=== PATIENT | male | born 1955 | race Caucasian/White ===

== ENCOUNTER 2020-04-22 11:59 | Outpatient (CLI) | payer OTHER, SELFPAY ==
--- NOTE | ~2020-04-22 | XR_ITS ---
XR foot LT min 3V DATE: 04/22/2020 12:21 INDICATION: Medial left foot pain for months . No injury. TECHNIQUE: 4 views COMPARISON: None FINDINGS: There is posterior and plantar calcaneal enthesopathy. There is osteoarthritis at the tibiotalar joint. There is mild osteoarthritis at the third metatarsophalangeal joint. No fracture or dislocation, periosteal reaction or bone destruction is evident. IMPRESSION: Osteoarthritis Calcaneal enthesopathy Reviewed, dictated and finalized at location A.
== END 2020-04-22 12:00 | disposition home or self-care (01) ==
PROVIDERS: PCP Family Medicine; Visit Provider Family Medicine
DX: M19.072 Primary osteoarthritis, left ankle and foot (principal)
CPT/HCPCS: 73630

== ENCOUNTER → 2020-08-18 13:26 | Outpatient (CLI) | payer OTHER, SELFPAY ==
--- NOTE | ~2020-08-18 | XR_ITS ---
XR hip BI 2V w AP pelvis 08/18/2020 14:17 Indication: Bilateral hip pain Procedure: 3 views of each hip including AP pelvis Comparison: No prior studies for comparison. Findings: There is mild bilateral symmetric osteoarthritis of the hips. There is lower lumbar spondyl osis. Pelvic rings are intact. Sacral foramen are symmetric. No fracture or traumatic malalignment. Impression: 1: Mild osteoarthritis of the hips. Reviewed, dictated and finalized at location B. Impression: 1: Mild osteoarthritis of the hips.
== END ==
PROVIDERS: PCP Family Medicine; Visit Provider Nurse Practitioner Family
DX: M16.0 Bilateral primary osteoarthritis of hip (principal)
CPT/HCPCS: 73521

== ENCOUNTER → 2022-06-02 08:35 | Outpatient (CLI) | payer MEDICARE, OTHER, SELFPAY ==
--- NOTE | ~2022-06-02 | US_ITS ---
EXAMINATION: US abdomen complete DATE: 06/02/2022 09:01 INDICATION: Jaundice. Elevated bilirubin. TECHNIQUE: Multiple grayscale and Doppler ultrasound images of the abdomen were obtained. COMPARISON: None available FINDINGS: Incompletely visualized, visualized portions of normal. The liver is enlarged, with increas ed echogenicity and normal echotexture. No surface nodularity. Normal hepatopetal flow in the main po rtal vein. The gallbladder is normal with no abnormal wall thickening, pericholecystic fluid or stone s. The normal common bile duct measures 5 mm. There was no sonographic Mello sign. The visualized po rtions of the aorta and inferior vena cava are normal. The right kidney measures 13.3 x 5.7 x 6.4. The left kidney measures 10.7 x 6.2 x 5.5. The kidneys de monstrate normal parenchymal echogenicity. There is no hydronephrosis. The spleen is normal in appear ance and measures 12.3 cm. IMPRESSION: 1. Hepatomegaly and steatosis. Reviewed, dictated and finalized at location K.
== END ==
PROVIDERS: PCP Family Medicine; Visit Provider Nurse Practitioner Family
DX: R17 Unspecified jaundice (principal); R16.0 Hepatomegaly, not elsewhere classified; K76.0 Fatty (change of) liver, not elsewhere classified
CPT/HCPCS: 76700

== ENCOUNTER 2022-06-04 09:37 | Outpatient (CLI) | payer MEDICARE, OTHER, SELFPAY ==
--- NOTE | ~2022-06-04 | US_ITS ---
EXAMINATION: US aorta [facility] DATE: 06/04/2022 11:05 INDICATION: AAA screening, history of hypertension diabetes obesity and smoking. TECHNIQUE: Grayscale, color Doppler, and pulsed Doppler images of the aorta and common iliac arteries were obtained. COMPARISON: None. FINDINGS: The aorta contains calcified plaque, mild fusiform aortic dilation, maximum AP dimension is 3.3 cm, m aximum transverse dimension 4.0 cm. The right common iliac artery 1.5 x 1.8 cm. The left common iliac artery 1.8 x 1.9 cm. IMPRESSION: 1. Maximum transverse diameter of the proximal aorta is 4 cm, recommend follow-up abdominal aortic ul trasound in one year. Reviewed, dictated and finalized at location K. IMPRESSION: 1. Maximum transverse diameter of the proximal aorta is 4 cm, recommend follow- up abdominal aortic ultrasound in one year.
--- NOTE | ~2022-06-04 | US_ITS ---
EXAMINATION: US carotid duplex BI DATE: 06/04/2022 11:06 INDICATION: Left carotid bruit TECHNIQUE: Grayscale, color Doppler, and pulsed Doppler images of the cervical carotid arteries were obtained. The degree of vessel stenosis is placed in one of the following categories: normal, <50%, 5 0-69%, >=70% but less than near-occlusion, near-occlusion, or total occlusion. Note that percent sten osis relative to normal distal artery lumen diameter is indirectly measured from velocity measurement s as described by Lauro, et al. Radiology 2003; [id number]. Notes: Normal: Peak systolic velocity <125 centimeters/sec and no plaque <50%. Peak systolic velocity <125 ( EDV <40; ICA/CCA PSV ratio <2.0; used these factors only a tandem lesions or low cardiac output or co ntralateral disease) 50-69 %: PSV 125-230 (EDV 40-100; ratio 2-4) >= 70% but less than near occlusion: PSV greater than 230 (EDV > 100; ratio> 4.0) Near Occlusion: PSV that is variable; markedly narrowed lumen Occlusion: Absent flow on color/spectral Doppler and no lumen on carbone scale. COMPARISON: None. FINDINGS: RIGHT: The right common carotid artery (CCA) peak systolic velocity (PSV) is 69 cm/s. The right internal car otid artery (ICA) PSV is 66 cm/s. The right ICA end-diastolic velocity (EDV) is 20 cm/s. The right IC A/CCA PSV ratio is 1.0. The external carotid artery (ECA) PSV is 68 cm/s. There is antegrade flow in the right vertebral artery. LEFT: The left CCA PSV is 65 cm/s. The left ICA PSV is 71 cm/s. The left ICA EDV is 29 cm/s. The left ICA/C CA PSV ratio is 1.1. The ECA PSV is 78 cm/s. There is antegrade flow in the left vertebral artery. IMPRESSION: 1. Less than 50% stenosis in the right internal carotid artery by sonographic criteria. 2. Less than 50% stenosis in the left internal carotid artery by sonographic criteria. Reviewed, dictated and finalized at location A. IMPRESSION: 1. Less than 50% stenosis in the right internal carotid artery by sonographic wesley jara. 2. Less than 50% stenosis in the left internal carotid artery by sonographic claire samuels.
== END 2022-06-04 09:38 | disposition home or self-care (01) ==
LOC: ANHIMG 09:43
PROVIDERS: PCP Family Medicine; Visit Provider Internal Medicine Cardiovascular Disease
DX: R09.89 Other specified symptoms and signs involving the circulatory and respiratory systems (principal); Z87.891 Personal history of nicotine dependence; I65.23 Occlusion and stenosis of bilateral carotid arteries
CPT/HCPCS: 76706; 93880

== ENCOUNTER 2022-06-27 00:56 | Day surgery (SDC) | payer MEDICARE, OTHER, SELFPAY ==
[2022-06-18 15:49] VITALS: BMI 37.9
--- NOTE | 2022-06-26 14:48 | PM.HPGS ---
History of Present Illness History of Present Illness Consent: Risks, benefits, and alternatives have been discussed and questions answered. Patient agrees to proceed with procedure. Chief complaint: neoplasm screening Narrative: Chad Bee is a 67 year old male who was referred for colon cancer screening. Review of Systems Review of Systems: All systems reviewed & are unremarkable except as noted in HPI and below Gastrointestinal: Comments: Fatty liver diagnosed 5 years ago. [facility] Past Medical History Medical History Adult BMI 39.0-39.9 kg/sq m Anxiety disorder, unspecified Atherosclerotic heart disease of [place] coronary artery without angina pectoris Elevated bilirubin Essential (primary) hypertension Hepatic steatosis Hepatomegaly Mixed hyperlipidemia Morbid obesity Obstructive sleep apnea on CPAP Osteoarthritis of both knees Rheumatoid arthritis, unspecified Family History Family History Father Hypertension Family history of diabetes mellitus in first degree relative Family history of heart disease in male family member before age 55 Sibling Family history of diabetes mellitus in first degree relative Other Family history of cardiovascular disease Family history of lung cancer Social History Social History Smoking packs per day: 0.5 Smoking cigarettes per day: 10.0 Years smoked: 10 Smoking pack-years: 5.00 Smoking status: Former smoker Tobacco type: cigarettes Second hand tobacco smoke exposure: No Alcohol intake: current Substance use: never Substance use type: does not use Living arrangements: with family Spiritual care concerns: No Meds Home Medications and Allergies Home Medications Medication Instructions Recorded Confirmed Type amlodipine 5 mg tablet 5 mg PO DAILY 03/28/20 06/19/22 History aspirin 81 mg tablet,delayed 81 mg PO DAILY 03/28/20 06/19/22 History release (Adult Low Dose Aspirin) clopidogrel 75 mg tablet (Plavix) 75 mg PO DAILY 03/28/20 06/19/22 History hydrochlorothiazide 12.5 mg capsule 12.5 mg PO DAILY 03/28/20 06/19/22 History metoprolol succinate 100 mg 100 mg PO DAILY 03/28/20 06/19/22 History tablet,extended release 24 hr rosuvastatin 10 mg tablet (Crestor) 10 mg PO DAILY 03/28/20 06/19/22 History sertraline 100 mg tablet See Rx Instructions .Route 10/09/20 06/19/22 Rx .COMPLEX #180 tabs infliximab-axxq 100 mg intravenous 100 mg IV Q2M 01/30/22 06/19/22 History solution (Avsola) losartan 50 mg tablet 50 mg PO DAILY 06/18/22 06/19/22 History rosuvastatin 20 mg tablet 20 mg PO DAILY 06/18/22 06/19/22 History Allergies Allergy/AdvReac Type Severity Reaction Status Date / Time No Known Allergies Allergy Unknown Verified 06/27/22 09:04 Exam Const: Nutritional Appearance: obese Resp: Auscultation: clear to auscultation bilaterally Cardio: Rate: regular rate Rhythm: regular rhythm GI: GI Palp: Yes Soft to palpation and No Tenderness to palpation present (GI) Assessment and Plan Assessment and plan (1) Screening for colon cancer: Code(s): Z12.11 - Encounter for screening for malignant neoplasm of colon Status: Acute Assessment and Plan: Colonoscopy with possible biopsy or polypectomy or cautery or injection of substances.
--- NOTE | 2022-06-27 08:01 | WPDANESEPPF ---
Anes - Initial Pre Proc Eval Procedure: Operation Date: 06/27/22 10:15 Proposed Procedures p Screening Colonoscopy - Ace López MD Date/Time: 06/27/22 08:01 Surgeon: Ace López MD Pre Op Diagnosis: neoplasm screening Patient Data Age: 67 Gender: M Height: 1.78 m Weight: 120 kg Allergies Allergy/AdvReac Type Severity Reaction Status Date / Time No Known Allergies Allergy Unknown Verified 06/27/22 09:04 Home Medications Medication Instructions Recorded Confirmed Type amlodipine 5 mg tablet 5 mg PO DAILY 03/28/20 06/19/22 History aspirin 81 mg tablet,delayed 81 mg PO DAILY 03/28/20 06/19/22 History release (Adult Low Dose Aspirin) clopidogrel 75 mg tablet (Plavix) 75 mg PO DAILY 03/28/20 06/19/22 History hydrochlorothiazide 12.5 mg capsule 12.5 mg PO DAILY 03/28/20 06/19/22 History metoprolol succinate 100 mg 100 mg PO DAILY 03/28/20 06/19/22 History tablet,extended release 24 hr rosuvastatin 10 mg tablet (Crestor) 10 mg PO DAILY 03/28/20 06/19/22 History sertraline 100 mg tablet See Rx Instructions .Route 10/09/20 06/19/22 Rx .COMPLEX #180 tabs infliximab-axxq 100 mg intravenous 100 mg IV Q2M 01/30/22 06/19/22 History solution (Avsola) losartan 50 mg tablet 50 mg PO DAILY 06/18/22 06/19/22 History rosuvastatin 20 mg tablet 20 mg PO DAILY 06/18/22 06/19/22 History Patient hx anesthesia problems: none Family hx anesthesia problems: none Results Review: All pre-operative results and documents have been reviewed as part of the pre-operative evaluation. [facility] Past Medical History Medical History (Updated 06/27/22 @ 08:03 by Michael Washington MD) Adult BMI 39.0-39.9 kg/sq m Anxiety disorder, unspecified Atherosclerotic heart disease of [place] coronary artery without angina pectoris Elevated bilirubin Essential (primary) hypertension Hepatic steatosis Hepatomegaly Mixed hyperlipidemia Morbid obesity Obstructive sleep apnea on CPAP Osteoarthritis of both knees Rheumatoid arthritis, unspecified Family History Family History Father Hypertension Family history of diabetes mellitus in first degree relative Family history of heart disease in male family member before age 55 Sibling Family history of diabetes mellitus in first degree relative Other Family history of cardiovascular disease Family history of lung cancer Social History Social History Smoking packs per day: 0.5 Smoking cigarettes per day: 10.0 Years smoked: 10 Smoking pack-years: 5.00 Smoking status: Former smoker Tobacco type: cigarettes Second hand tobacco smoke exposure: No Alcohol intake: current Substance use: never Substance use type: does not use Living arrangements: with family Spiritual care concerns: No Anes - Eval Final PreProcedure Day of Procedure 06/27/22 08:01 Patient weight: morbidly obese Heart: regular rate and rhythm Lungs: clear to auscultation and normal air movement Airway: Mallampati scale class II Neurological: alert and oriented Last oral intake: >/= 8 hours ASA classification: III Emergent: no Anesthetic plan: proceed Anesthesia type and monitoring: general GIVS Results Review: All pre-operative results and documents have been reviewed as part of the pre-operative evaluation. Informed Consent: The patient's anesthetic plan and its attendant risks and benefits were discussed with the patient/family/POA. Questions were solicited and answers provided to the satisfaction of the patient/family/POA.
[2022-06-27 09:06] VITALS: BP 127/57; PULSE 57; RESP 19; TEMP 36.2; O2SAT 98
[2022-06-27] MEDS: LACTATED RINGERS 1,000 ML 150 ML IV CONT (09:15)
[2022-06-27 10:28] VITALS: BP 100/58; PULSE 54; RESP 19; O2SAT 98
[2022-06-27 10:38] VITALS: BP 106/65; PULSE 50; RESP 19; O2SAT 98
[2022-06-27 10:48] VITALS: BP 110/60; PULSE 56; RESP 20; O2SAT 100
== END 2022-06-27 11:01 | disposition home or self-care (01) ==
PROVIDERS: PCP Family Medicine; Visit Provider Internal Medicine Gastroenterology
PROC: 0DJD8ZZ Inspection of Lower Intestinal Tract, Via Natural or Artificial Opening Endoscopic (ICD-10-PCS; CPT 45378; principal; 2022-06-27 10:15)
DX: Z12.11 Encounter for screening for malignant neoplasm of colon (principal); D12.5 Benign neoplasm of sigmoid colon; K57.30 Diverticulosis of large intestine without perforation or abscess without bleeding; K57.32 Diverticulitis of large intestine without perforation or abscess without bleeding; K64.8 Other hemorrhoids; Z79.82 Long term (current) use of aspirin; F41.9 Anxiety disorder, unspecified; I25.10 Atherosclerotic heart disease of native coronary artery without angina pectoris; I10 Essential (primary) hypertension; K76.0 Fatty (change of) liver, not elsewhere classified; E78.5 Hyperlipidemia, unspecified; E78.2 Mixed hyperlipidemia; Z87.891 Personal history of nicotine dependence; E66.9 Obesity, unspecified; Z68.41 Body mass index [BMI] 40.0-44.9, adult
CPT/HCPCS: 45380; 88305; J2704; J7120

== ENCOUNTER 2022-09-01 15:04 | Emergency (ER) | payer MEDICARE, OTHER, SELFPAY ==
[2022-09-01 15:16] VITALS: BP 125/75; PULSE 66; RESP 20; TEMP 36.2; O2SAT 100
--- NOTE | 2022-09-01 16:13 | ED.SKABFB ---
HPI - Skin/Abscess/Foreign Bdy General Chief complaint: Skin/Abscess/Foreign Body Stated complaint: Rt Back and Chest Pain,Rash Time Seen by Provider: 09/01/22 15:57 Source: patient Mode of arrival: ambulatory Limitations: no limitations History of Present Illness HPI narrative: Patient presents today complaining of painful rash to his mid back extending laterally to his chest. Pain began 6 days ago, but the rash started today. He currently rates his pain 5/10 and has tried no [id number] treatment prior to arrival. Patient has rheumatoid arthritis for which he takes Remicade. Related Data Home Medications Medication Instructions Recorded Confirmed amlodipine 5 mg tablet 5 mg PO DAILY 03/28/20 09/01/22 aspirin 81 mg tablet,delayed 81 mg PO DAILY 03/28/20 09/01/22 release (Adult Low Dose Aspirin) clopidogrel 75 mg tablet (Plavix) 75 mg PO DAILY 03/28/20 09/01/22 hydrochlorothiazide 12.5 mg capsule 12.5 mg PO DAILY 03/28/20 09/01/22 metoprolol succinate 100 mg 100 mg PO DAILY 03/28/20 09/01/22 tablet,extended release 24 hr infliximab-axxq 100 mg intravenous 100 mg IV Q2M 01/30/22 09/01/22 solution (Avsola) losartan 50 mg tablet 50 mg PO DAILY 06/18/22 09/01/22 rosuvastatin 20 mg tablet 20 mg PO DAILY 06/18/22 09/01/22 Allergies Allergy/AdvReac Type Severity Reaction Status Date / Time No Known Allergies Allergy Unknown Verified 09/01/22 15:56 Review of Systems Review of Systems: CONSTITUTIONAL: Denies body aches, fever, chills, or sweats. EYES: Denies visual changes, redness, or discharge. ENT: Denies rhinorrhea, congestion, sore throat, or otalgia. CARDIOVASCULAR: Denies chest pain, palpitations, or edema. RESPIRATORY: Denies cough or dyspnea. GASTROINTESTINAL: Denies abdominal pain, nausea, vomiting, or diarrhea. GENITOURINARY: Denies dysuria or hematuria. SKIN: + rash MUSCULOSKELETAL: Denies back pain, joint pain, or myalgia. NEUROLOGIC: Denies headache, numbness, tingling, or weakness. PSYCH: Denies depression or anxiety. [facility] Past Medical History Medical History Adult BMI 39.0-39.9 kg/sq m Anxiety disorder, unspecified Atherosclerotic heart disease of [place] coronary artery without angina pectoris Elevated bilirubin Essential (primary) hypertension Hepatic steatosis Hepatomegaly Mixed hyperlipidemia Morbid obesity Obstructive sleep apnea on CPAP Osteoarthritis of both knees Rheumatoid arthritis, unspecified Family History Family History Father Hypertension Family history of diabetes mellitus in first degree relative Family history of heart disease in male family member before age 55 Sibling Family history of diabetes mellitus in first degree relative Other Family history of cardiovascular disease Family history of lung cancer Social History Social History Smoking packs per day: 0.5 Smoking cigarettes per day: 10.0 Years smoked: 10 Smoking pack-years: 5.00 Smoking status: Former smoker Tobacco type: cigarettes Second hand tobacco smoke exposure: No Alcohol intake: current Substance use: never Substance use type: does not use Spiritual care concerns: No Comments At time of signature, I have reviewed and agree with nursing past medical, surgical, social and family history unless otherwise noted. Please see nursing chart for further information. There is no relevant family history pertinent to the presenting complaint Exam Narrative: GENERAL: Well-appearing, well-nourished, and in no acute distress. HEAD: Normocephalic, atraumatic. EYES: EOMI. No redness or drainage. Conjunctivae normal. ENT: Mucous membranes pink and moist. NECK: Normal AROM. CHEST: No respiratory distress. EXTREMITIES: Normal range of motion. No edema. SKIN: Warm, dry. Capillary refill normal
== END 2022-09-01 16:23 | disposition home or self-care (01) ==
PROVIDERS: Emergency Provider Nurse Practitioner; PCP Family Medicine
DX: B02.9 Zoster without complications (principal); Z87.891 Personal history of nicotine dependence; I10 Essential (primary) hypertension; E78.2 Mixed hyperlipidemia; G47.33 Obstructive sleep apnea (adult) (pediatric); M17.0 Bilateral primary osteoarthritis of knee; M06.9 Rheumatoid arthritis, unspecified; I25.10 Atherosclerotic heart disease of native coronary artery without angina pectoris; Z79.82 Long term (current) use of aspirin
CPT/HCPCS: 99213; G0463

== ENCOUNTER 2023-01-22 11:56 | Outpatient (CLI) | payer MEDICARE, OTHER, SELFPAY ==
--- NOTE | ~2023-01-22 | XR_ITS ---
XR chest 2V DATE: 01/22/2023 12:09 INDICATION: Dyspnea TECHNIQUE: PA and lateral views COMPARISON: 10/13/2015 CT pulmonary scan 10/11/2015 2 view chest FINDINGS: Normal heart size. Aortic calcification and minimal tortuosity. No hilar or mediastinal enl argement. No pulmonary infiltrate or consolidation, pleural effusion or pulmonary vascular congestion or pneumo thorax. Diffuse idiopathic skeletal hyperostosis of the thoracic spine. IMPRESSION: No active cardiac pulmonary disease Aortic atherosclerosis Diffuse idiopathic skeletal hyperostosis of the thoracic spine Reviewed, dictated and finalized at location L.
== END 2023-01-22 11:57 | disposition home or self-care (01) ==
PROVIDERS: PCP Family Medicine; Visit Provider Family Medicine
DX: R06.09 Other forms of dyspnea (principal); I70.0 Atherosclerosis of aorta; M48.14 Ankylosing hyperostosis [Forestier], thoracic region
CPT/HCPCS: 71046

== ENCOUNTER 2023-01-31 14:54 | Outpatient (CLI) | payer MEDICARE, OTHER, SELFPAY ==
--- NOTE | ~2023-01-31 | CT_ITS ---
EXAMINATION:CT lung screening DATE: 01/31/2023 15:11 INDICATION: Personal history of nicotine dependence. TECHNIQUE: Computed tomography (CT) of the chest was performed without intravenous contrast. Automate d exposure control and iterative reconstruction technique were employed. The dose-length product (DLP ) was 459.02 mGy-cm. COMPARISON: Chest CT 12/12/2014 FINDINGS: There is mild scarring in paraspinal right lower lobe. There is a 3 mm nodule in left lower lobe. No pleural effusion. The heart size is normal. There are coronary artery calcifications. No pe ricardial effusion. There are bridging endplate osteophytes at multiple levels in the spine, consiste nt with diffuse idiopathic skeletal hyperostosis (DISH). There is severe cervical spondylosis. There is mild chronic anterior wedging of multiple lower thoracic vertebral bodies. IMPRESSION: 1. Lung-RADS category 2: Benign appearance or behavior. Reviewed, dictated and finalized at location A.
== END 2023-01-31 14:55 | disposition home or self-care (01) ==
PROVIDERS: PCP Family Medicine; Visit Provider Family Medicine
DX: Z12.2 Encounter for screening for malignant neoplasm of respiratory organs (principal); Z87.891 Personal history of nicotine dependence; R06.02 Shortness of breath
CPT/HCPCS: 71271

== ENCOUNTER 2024-07-27 09:27 | Outpatient (CLI) | payer MEDICARE, OTHER, SELFPAY ==
--- NOTE | ~2024-07-27 | CT_ITS ---
CT Scan of the Chest without Contrast: Clinical Indication: Pulmonary nodule Technique: Contiguous sections were acquired throughout the chest without intravenous contrast. Dose reduction technique was used on this scan by utilizing automated exposure control and iterative recon struction technique. The dose-length product (DLP) was 573.13 mGy-cm. COMPARISON: 01/31/2023 Findings: There is no evidence of any significant mediastinal, hilar or axillary lymphadenopathy. Severe hanson ry artery calcification present. There is no evidence of pleural or pericardial effusion. Stable 2 mm left lower lobe pulmonary nodule. Images through the upper abdomen reveal stable left adrenal adenomas. Impression: Stable 2 mm left lower lobe pulmonary nodule. Reviewed, dictated and finalized at location . Impression: Stable 2 mm left lower lobe pulmonary nodule.
== END 2024-07-27 09:28 | disposition home or self-care (01) ==
PROVIDERS: PCP Family Medicine; Visit Provider Family Medicine
DX: R91.1 Solitary pulmonary nodule (principal)
CPT/HCPCS: 71250